=== PATIENT | female | born 2000 | race African-American/Black ===

== ENCOUNTER 2019-03-07 17:55 | Emergency (ER) | payer MEDICAID ==
[~2019-03-07] VITALS: Ht 167.6 cm; Wt 81.6 kg
[2019-03-07 18:16] VITALS: BP 123/83
[2019-03-07 20:13] LABS: Urine Bacteria FEW /hpf (None Seen); Urine Blood Negative /uL (Negative); Urine Specific Gravity 1.013 (1.001-1.035); Urine WBC 5 /hpf (0 - 5)
== END 2019-03-07 23:15 | disposition left against medical advice (07) ==
LOC: ER 17:58
DX: R10.9 Unspecified abdominal pain (principal); R11.0 Nausea; R19.7 Diarrhea, unspecified; Z53.21 Procedure and treatment not carried out due to patient leaving prior to being seen by health care provider
CPT/HCPCS: 74176; 81001; 81025

== ENCOUNTER 2019-05-27 17:21 | Emergency (ER) | payer MEDICAID ==
[~2019-05-27] VITALS: Ht 170.2 cm; Wt 86.2 kg
[2019-05-27 19:23] LABS: Basophils # (auto) 0.1 uL; Basophils % (auto) 0.7 % (0.0-2.0); Eosinophils # (auto) 0.1 uL; Eosinophils % (auto) 1.3 % (0.0-7.0); Hematocrit 38.7 % (36.0-46.0); Hemoglobin 12.8 g/dL (12.2-16.2); Lymphocytes # (auto) 2.1 uL; Lymphocytes % (auto) 23.4 % (10.0-50.0); Mean Corpuscular Hemoglobin 28.9 pg (28.0-32.0); Mean Corpuscular Hgb Conc. 33.1 g/dL (32.0-36.0); Mean Corpuscular Volume 87.3 fL (80.0-100.0); Monocytes # (auto) 0.6 uL; Monocytes % (auto) 7.3 % (0.0-12.0); Neutrophils # (auto) 5.9 uL; Neutrophils % (auto) 67.3 % (37.0-80.0); Platelet Count (auto) 247 10^3/uL (140-450); Red Blood Cells 4.43 10^6/uL (4.0-5.20); Red Cell Distribution Width 15.2 % (11.8-14.3); White Blood Cell 8.8 10^3/uL (4.4-10.8)
[2019-05-27 19:33] LABS: Urine Bacteria FEW /hpf (None Seen); Urine Blood Negative /uL (Negative); Urine Specific Gravity 1.022 (1.001-1.035); Urine WBC 2 /hpf (0 - 5)
[2019-05-27 19:44] LABS: Albumin 3.7 g/dL (3.4-5.0); BUN/Creatinine Ratio 17.1; Potassium 4.1 mmol/L (3.5-5.1)
[2019-05-27 19:46] LABS: Bilirubin, Total 0.2 mg/dL (0.2-1.0)
[2019-05-27 22:31] VITALS: BP 109/67
== END 2019-05-27 22:36 | disposition home or self-care (01) ==
LOC: ER 17:21
DX: K52.9 Noninfective gastroenteritis and colitis, unspecified (principal)
CPT/HCPCS: 36415; 80053; 81001; 81025; 85025

== ENCOUNTER 2022-02-07 08:53 | Emergency (ER) | payer MEDICAID, OTHER ==
[~2022-02-07] VITALS: Ht 165.1 cm; Wt 61.8 kg
[2022-02-07] MEDS ORDERED: PROCHLORPERAZINE EDISYLATE 5 MG/ML 2ML VIAL IV ONE (09:15)
[2022-02-07] MEDS ORDERED: SODIUM CHLORIDE 0.9% 1,000 ML IVB ONE (09:15)
[2022-02-07] MEDS ORDERED: PANTOPRAZOLE 40 MG/10 ML VIAL INJ IV ONE (09:15)
[2022-02-07 09:35] LABS: Urine Bacteria FEW /hpf (None Seen); Urine Blood Negative /uL (Negative); Urine WBC 4 /hpf (0 - 5)
[2022-02-07] MEDS ORDERED: MORPHINE SULFATE INJ 2 MG/ml SYRG IV ONE (09:45)
[2022-02-07 09:50] LABS: Basophils # (auto) 0.1 10 ^3/uL (0-0.2); Eosinophils # (auto) 0.1 10 ^3/uL (0-0.8); Eosinophils % (auto) 0.6 % (0.0-7.0); Hemoglobin 14.2 g/dL (12.2-16.2); Lymphocytes # (auto) 1.7 10 ^3/uL (0.4-5.4); Lymphocytes % (auto) 15.2 % (10.0-50.0); Mean Corpuscular Hgb Conc. 33.1 g/dL (32.0-36.0); Mean Corpuscular Volume 93.7 fL (80.0-100.0); Monocytes % (auto) 8.8 % (0.0-12.0); Neutrophils # (auto) 8.4 10 ^3/uL (1.6-8.6); Neutrophils % (auto) 74.4 % (37.0-80.0); Red Blood Cells 4.59 10^6/uL (4.0-5.20); Red Cell Distribution Width 12.9 % (11.8-14.3); White Blood Cell 11.4 10^3/uL (4.4-10.8)
[2022-02-07 10:12] LABS: Albumin 4.2 g/dL (3.4-5.0); Calcium 9.7 mg/dL (8.5-10.1); Potassium 3.9 mmol/L (3.5-5.1)
[2022-02-07 10:16] LABS: BUN/Creatinine Ratio 14.3; Bilirubin, Total 0.4 mg/dL (0.2-1.0); Total Protein 8.5 g/dL (6.4-8.2)
[2022-02-07 10:23] LABS: INR 1.01 (0.9-1.15); Partial Thromboplastin Time 28.7 sec (24.6-33.4)
[2022-02-07 11:45] VITALS: BP 128/89
[2022-02-07] MEDS ORDERED: cefTRIAXone 1GM/50ML D5W 50 ML IV ONE (11:45)
[2022-02-07] MEDS ORDERED: PANT40TA2 PO (11:48)
[2022-02-07] MEDS ORDERED: ONDA-144 PO (11:48)
[2022-02-07] MEDS ORDERED: NITR-87 PO (11:57)
== END 2022-02-07 12:53 | disposition home or self-care (01) ==
LOC: ER 08:53
DX: R11.2 Nausea with vomiting, unspecified (principal); R10.11 Right upper quadrant pain; Z79.899 Other long term (current) drug therapy
CPT/HCPCS: 36415; 74176; 80053; 81001; 81025; 82150; 83690; 85025; 85610; 85730; 96361; 96365; 96375; 99285; C9113; J0696; J0780; J2270; J7030

== ENCOUNTER 2023-12-24 10:42 | Inpatient (IN) | payer MEDICAID, OTHER ==
[~2023-12-24] VITALS: Ht 165.1 cm; Wt 63.9 kg
[~2023-12-24 10:42] MED LIST: NITR-87 PO; ONDA-144 PO; PANT40TA2 PO
[2023-12-24 11:42] LABS: Urine Bacteria None Seen /hpf (None Seen)
[2023-12-24 11:57] LABS: Urine Blood Negative /uL (Negative); Urine Clarity Clear (Clear); Urine Color Colorless (Yellow); Urine Protein, UAD Negative (Negative); Urine Specific Gravity 1.009 (1.001-1.035); Urine Urobilinogen Normal (Negative); Urine WBC <1 /hpf (0 - 5)
[2023-12-24 13:36] LABS: Basophils # (auto) 0.1 10 ^3/uL (0-0.2); Basophils % (auto) 0.7 % (0.0-2.0); Eosinophils # (auto) 0.2 10 ^3/uL (0-0.8); Eosinophils % (auto) 2.9 % (0.0-7.0); Hematocrit 37.4 % (36.0-46.0); Hemoglobin 12.9 g/dL (12.2-16.2); Lymphocytes # (auto) 2.7 10 ^3/uL (0.4-5.4); Lymphocytes % (auto) 32.3 % (10.0-50.0); Mean Corpuscular Hemoglobin 32.9 pg (28.0-32.0); Mean Corpuscular Hgb Conc. 34.4 g/dL (32.0-36.0); Mean Corpuscular Volume 95.4 fL (80.0-100.0); Monocytes # (auto) 0.8 10 ^3/uL (0-1.3); Neutrophils # (auto) 4.5 10 ^3/uL (1.6-8.6); Neutrophils % (auto) 54.1 % (37.0-80.0); Red Blood Cells 3.92 10^6/uL (4.0-5.20); Red Cell Distribution Width 12.6 % (11.8-14.3); White Blood Cell 8.3 10^3/uL (4.4-10.8)
[2023-12-24 13:41] LABS: Chloride 109 mmol/L (98-107); Potassium 3.8 mmol/L (3.5-5.1); Sodium 138 mmol/L (136-145)
[2023-12-24 13:42] LABS: Anion Gap 5 (5-15); Calcium 9.5 mg/dL (8.7-10.4); Carbon Dioxide 24 mmol/L (20-30)
[2023-12-24 13:47] LABS: BUN/Creatinine Ratio 11.8 (10.0-20.0); Blood Urea Nitrogen 8 mg/dL (9-23); Glucose 86 mg/dL (74-106)
[2023-12-24 16:51] VITALS: BP 114/60; PULSE 59; RESP 20; TEMP 98.4; O2SAT 97
[2023-12-24] MEDS: KETOROLAC TROMETH 30 MG/ML 1ML VIAL IV ONE (16:59)
[2023-12-24] MEDS: SODIUM CHLORIDE 0.9% 500 ML IV ONE (16:59)
[2023-12-24] MEDS ORDERED: ONDANSETRON HCL 4 MG/2 ML VIAL IV PRN (19:15)
[2023-12-24] MEDS ORDERED: SODIUM CHLORIDE 0.9% 1,000 ML IV SCH (19:15)
[2023-12-24] MEDS ORDERED: DOCUSATE SOD 100 MG CAP PO PRN (19:15)
[2023-12-24] MEDS ORDERED: NITROGLYCERIN 0.4 MG SL TAB SL PRN (19:15)
[2023-12-24] MEDS ORDERED: MORPHINE SULFATE INJ 2 MG/ml SYRG IV PRN ×2 (19:15)
[2023-12-24] MEDS ORDERED: DICYCLOMINE HCL 10 MG CAP PO ONE (19:15)
[2023-12-24] MEDS ORDERED: PANTOPRAZOLE 40 MG/10 ML VIAL INJ IV ONE (19:15)
[2023-12-24 20:24] LABS: Amphetamine Screen, Urine Neg (NEGATIVE); Barbiturate Scree,Urine Neg (NEGATIVE); Benzodiazephine Screen, Urine Neg (NEGATIVE); Cannabinoid Screen, Urine Pos (NEGATIVE); Cocaine Screen, Urine Neg (NEGATIVE); Opiate Scree,Urine Neg (NEGATIVE); Phencyclidine Screen, Urine Neg (NEGATIVE)
[2023-12-24] MEDS ORDERED: DICYCLOMINE HCL 10 MG CAP PO SCH (22:00)
[2023-12-25] MEDS ORDERED: PANTOPRAZOLE 40 MG/10 ML VIAL INJ IV SCH (10:00)
== END 2023-12-24 22:04 | disposition left against medical advice (07) | DRG 812 ==
LOC: ER 10:42 → OVERFLOW 19:16
PROVIDERS: ADMIT Internal Medicine Geriatric Medicine; ATTEND Internal Medicine Geriatric Medicine
DX: T40.711A Poisoning by cannabis, accidental (unintentional), initial encounter (principal); F12.90 Cannabis use, unspecified, uncomplicated; R10.31 Right lower quadrant pain; S39.012A Strain of muscle, fascia and tendon of lower back, initial encounter; Z53.29 Procedure and treatment not carried out because of patient's decision for other reasons; F19.90 Other psychoactive substance use, unspecified, uncomplicated; Y92.89 Other specified places as the place of occurrence of the external cause
CPT/HCPCS: 36415; 74176; 76856; 80048; 80307; 81001; 81025; 83605; 83690; 85025; G0378; J1885

== ENCOUNTER 2024-01-26 16:50 | Emergency (ER) | payer MEDICAID ==
[~2024-01-26] VITALS: Ht 165.1 cm; Wt 68.3 kg
[2024-01-26 17:58] LABS: Urine Bacteria None Seen /hpf (None Seen)
[2024-01-26 18:34] LABS: Basophils # (auto) 0 10 ^3/uL (0-0.2); Basophils % (auto) 0.6 % (0.0-2.0); Eosinophils # (auto) 0.3 10 ^3/uL (0-0.8); Eosinophils % (auto) 4.1 % (0.0-7.0); Hematocrit 35.3 % (36.0-46.0); Hemoglobin 11.8 g/dL (12.2-16.2); Lymphocytes # (auto) 2.7 10 ^3/uL (0.4-5.4); Lymphocytes % (auto) 39.2 % (10.0-50.0); Mean Corpuscular Hemoglobin 31.9 pg (28.0-32.0); Mean Corpuscular Hgb Conc. 33.3 g/dL (32.0-36.0); Mean Corpuscular Volume 95.8 fL (80.0-100.0); Monocytes # (auto) 0.6 10 ^3/uL (0-1.3); Monocytes % (auto) 8.2 % (0.0-12.0); Neutrophils # (auto) 3.3 10 ^3/uL (1.6-8.6); Neutrophils % (auto) 47.9 % (37.0-80.0); Nucleated Red Blood Cells % 0.1 %; Platelet Count (auto) 156 10^3/uL (140-450); Red Blood Cells 3.69 10^6/uL (4.0-5.20); Red Cell Distribution Width 12.7 % (11.8-14.3); White Blood Cell 6.9 10^3/uL (4.4-10.8)
[2024-01-26 18:41] LABS: Urine Blood Negative /uL (Negative); Urine Clarity Clear (Clear); Urine Protein, UAD Negative (Negative); Urine Specific Gravity 1.007 (1.001-1.035); Urine Urobilinogen Normal (Negative); Urine WBC <1 /hpf (0 - 5); Urine pH 6.5 (5.0-9.0)
[2024-01-26 18:48] LABS: Chloride 110 mmol/L (98-107); Potassium 3.7 mmol/L (3.5-5.1); Sodium 140 mmol/L (136-145)
[2024-01-26 18:49] LABS: Anion Gap 5 (5-15); Carbon Dioxide 25 mmol/L (20-30)
[2024-01-26 18:54] LABS: BUN/Creatinine Ratio 8.8 (10.0-20.0); Blood Urea Nitrogen 7 mg/dL (9-23); Glucose 89 mg/dL (74-106)
[2024-01-26 19:00] LABS: Urine Color Straw (Yellow)
[2024-01-26] MEDS: IOHEXOL 350 MG/ML 100ML IJ ONE (23:32)
[2024-01-26] MEDS: KETOROLAC TROMETH 30 MG/ML 1ML VIAL IV ONE (23:48)
[2024-01-26] MEDS: ONDANSETRON HCL 4 MG/2 ML VIAL IV ONE (23:49)
[2024-01-26] MEDS: SODIUM CHLORIDE 0.9% 1,000 ML IV ONE (23:49)
[2024-01-27 00:09] VITALS: BP 117/75; PULSE 59; RESP 14; TEMP 98; O2SAT 100
[2024-01-27] MEDS: HYDROcodone-ACET 10/325MG TAB PO ONE (03:00)
== END 2024-01-27 04:55 | disposition left against medical advice (07) ==
LOC: ER 16:50
DX: R10.31 Right lower quadrant pain (principal); R07.89 Other chest pain; R06.02 Shortness of breath; M79.604 Pain in right leg; M79.89 Other specified soft tissue disorders; Z79.899 Other long term (current) drug therapy
CPT/HCPCS: 36415; 71275; 72192; 80048; 81001; 81025; 85025; 85379; 96361; 96374; 96375; 99285; J1885; J2405; Q9967

== ENCOUNTER 2024-03-23 16:13 | Emergency (ER) | payer MEDICAID ==
[~2024-03-23] VITALS: Ht 165.1 cm; Wt 64.3 kg
[2024-03-23 17:44] LABS: Basophils # (auto) 0.1 10 ^3/uL (0-0.2); Basophils % (auto) 0.8 % (0.0-2.0); Eosinophils # (auto) 0.2 10 ^3/uL (0-0.8); Eosinophils % (auto) 2.7 % (0.0-7.0); Hematocrit 37.4 % (36.0-46.0); Hemoglobin 12.6 g/dL (12.2-16.2); Lymphocytes # (auto) 2.2 10 ^3/uL (0.4-5.4); Lymphocytes % (auto) 28.7 % (10.0-50.0); Mean Corpuscular Hemoglobin 31.9 pg (28.0-32.0); Mean Corpuscular Hgb Conc. 33.6 g/dL (32.0-36.0); Mean Corpuscular Volume 94.9 fL (80.0-100.0); Monocytes # (auto) 0.7 10 ^3/uL (0-1.3); Monocytes % (auto) 8.7 % (0.0-12.0); Neutrophils # (auto) 4.6 10 ^3/uL (1.6-8.6); Neutrophils % (auto) 59.1 % (37.0-80.0); Nucleated Red Blood Cells % 0.1 %; Platelet Count (auto) 162 10^3/uL (140-450); Red Blood Cells 3.94 10^6/uL (4.0-5.20); Red Cell Distribution Width 13.2 % (11.8-14.3); White Blood Cell 7.7 10^3/uL (4.4-10.8)
[2024-03-23 17:57] LABS: Alanine Aminotransferase 14 U/L (7-40); Albumin 4.7 g/dL (3.2-4.8); Alkaline Phosphatase 61 U/L (46-116); Anion Gap 6 (5-15); Aspartate Aminotransferase 14 U/L (13-40); BUN/Creatinine Ratio 11.1 (10.0-20.0); Bilirubin, Total 0.4 mg/dL (0.2-1.0); Blood Urea Nitrogen 8 mg/dL (9-23); Calcium 10.1 mg/dL (8.7-10.4); Carbon Dioxide 25 mmol/L (20-31); Chloride 107 mmol/L (98-107); Glucose 84 mg/dL (74-106); Potassium 4.1 mmol/L (3.5-5.1); Sodium 138 mmol/L (136-145); Total Protein 7.6 g/dL (5.7-8.2)
[2024-03-23 17:58] LABS: Urine Bacteria None Seen /hpf (None Seen); Urine WBC None Seen /hpf (0 - 5)
[2024-03-23 18:16] LABS: Urine Blood Negative /uL (Negative); Urine Clarity Clear (Clear); Urine Color Light-Yellow (Yellow); Urine Protein, UAD Negative (Negative); Urine Specific Gravity 1.011 (1.001-1.035); Urine Urobilinogen Normal (Negative); Urine pH 6.5 (5.0-9.0)
[2024-03-23] MEDS ORDERED: OMEP-434 PO (20:03)
[2024-03-23] MEDS ORDERED: FAMO20TA10 PO (20:03)
[2024-03-23 20:14] VITALS: BP 119/74; PULSE 70; RESP 16; TEMP 98.7; O2SAT 100
[2024-03-23] MEDS: LIDOCAINE VISCOUS 2% 15ML UD MT ONE (20:30)
[2024-03-23] MEDS: MAALOX PLUS or MAALOX 30 ML PO ONE (20:31)
[2024-03-23] MEDS: ONDANSETRON ODT 4 MG TAB PO ONE (20:31)
== END 2024-03-23 20:32 | disposition home or self-care (01) ==
LOC: ER 16:13
DX: K25.9 Gastric ulcer, unspecified as acute or chronic, without hemorrhage or perforation (principal); F12.10 Cannabis abuse, uncomplicated; Z79.899 Other long term (current) drug therapy; Z87.440 Personal history of urinary (tract) infections; Z32.02 Encounter for pregnancy test, result negative
CPT/HCPCS: 36415; 74176; 80053; 81001; 81025; 85025

== ENCOUNTER 2024-09-30 15:33 | Emergency (ER) | payer MEDICAID ==
[~2024-09-30] VITALS: Ht 167.6 cm; Wt 81.6 kg
[~2024-09-30 15:33] MED LIST changes: +FAMO20TA10 PO; +OMEP-434 PO
[2024-09-30] MEDS ORDERED: AMOX875T4 PO (19:43)
[2024-09-30] MEDS ORDERED: ACE3T PO (19:43)
[2024-09-30] MEDS ORDERED: CIPR1SUS8 OT (19:43)
--- NOTE | 2024-09-30 19:44 | ED.PDOC ---
Eye-HPI HPI Comments 24 year old female presents to ER with complaints of left sided earache pain x 2.5 weeks. Patient states she's been experiencing a left sided earache x 2.5 weeks with associated left upper toothache x 3.5 weeks. She rates her current earache/toothache pain a 8/10 with associated 8/10 left sided headache. Notes that she followed up with a dentist 1 week ago and was prescribed amoxicillin that she's been taking without relief. Patient presents to ER ambulatory on arrival, alert and oriented x4, with steady gait, in no distress. Denies fever, skin changes, ear drainage, nausea/vomiting, numbness/tingling, dizziness or any further symptoms/complaints Chief Complaint: Tooth Pain Time Seen by MD: 18:09 Primary Care Provider: [facility] Notes: Nurses Notes, Medications, Allergies Allergies: Coded Allergies: NO KNOWN ALLERGIES (Unverified , 01/14/19) Home Meds Active Scripts Amoxicillin & Pot Clavulanate (Amoxicillin/Potassium Cla) 875 Mg Tab, 1 TAB PO BID for 7 Days, #14 TAB 0 Refills Prov:TRINA MONTES 09/30/24 Acetaminophen W/ Codeine (Tylenol W/Cod #3) 1 Tab Tb, 1 TAB PO Q6HPRN, #10 TAB 0 Refills Prov:TRINA MONTES 09/30/24 Ciprofloxacin-Dexamethasone (Ciprofloxacin/Dexamethaso 0.3-0.1 %) 1 Yaima Yaima, 4 DROP OT BID for 7 Days, #1 BOTTLE 0 Refills Prov:TRINA MONTES 09/30/24 Famotidine (PEPCID TABLET) 20 Mg Tb, 1 TAB PO BID, #60 TAB 5 Refills Prov:JAY COLEMAN 03/23/24 Omeprazole Magnesium (Omeprazole) 20 Mg Tab, 20 MG PO DAILY, #30 TAB Prov:JAY COLEMAN 03/23/24 Nitrofurantoin Monohydrate Mac (Macrobid) 100 Mg Cap, 100 MG PO BID for 5 Days, #10 CAP Prov:HANY WHITE MD 02/07/22 Ondansetron (Zofran) 4 Mg Tab, 1 TAB PO Q6HR, #20 TAB Prov:HANY WHITE MD 02/07/22 Pantoprazole Sodium Sesquihydr (Protonix) 40 Mg Tab, 40 MG PO DAILY, #30 TAB Prov:HANY WHITE MD 02/07/22 Information Source: Patient Mode of Arrival: Ambulatory Past Medical History PAST MEDICAL HISTORY: Kidney Stones, UTI'S Surgical History: Denies all surgeries 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 Family History Family History: Unknown Social History Smoker: Non-Smoker Alcohol: Occasionally Drugs: Marijuana Lives In: Home Constitutional: denies: chills, diaphoresis, fatigue, fever, malaise, sweats, weakness, others EENTM: reports: others (As stated in HPI) Respiratory: denies: cough, hemoptysis, orthopnea, SOB at rest, shortness of breath, SOB with excertion, stridor, wheezing, others Cardiovascular: denies: chest pain, dizzy spells, diaphoresis, Dyspnea on exertion, edema, irregular heart beat, left arm pain, lightheadedness, palpitations, PND, syncope, others Gastrointestinal: denies: abdomen distended, abdominal pain, blood streaked bowels, constipated, diarrhea, dysphagia, difficulty swallowing, hematemesis, melena, nausea, poor appetite, poor fluid intake, rectal bleeding, rectal pain, vomiting, others Genitourinary: denies: abnormal vagina bleeding, burning, dyspareunia, dysuria, flank pain, frequency, hematuria, incontinence, pain, , vagina discharge, urgency, others Neurological: denies: dizziness, fainting, headache, left sided numbness, left sided weakness, numbness, paresthesia, pre-existing deficit, right sided numbness, right sided weakness, seizure, speech problems, tingling, tremors, weakness, others Musculoskeletal: denies: back pain, gout, joint pain, joint swelling, muscle pain, muscle stiffness, neck pain, others Integumetry: denies: bruises, change in color, change in hair/nails, dryness, laceration, lesions, lumps, rash, wounds, others Allergic/Immunocompromised: denies: Difficulty Healing, Frequent Infections, Hives, Itching, others Hematologic/Lymphatic: denies: anemia, blood clots, easy bleeding, easy bruising, swollen glands, others Endocrine: denies: excessive hunger, excessive sweating, excessive thirst, excessive urination, flushing, intolerance to cold, intolerance to heat, unexplained weight gain, unexplained weight loss, others Psychiatric: denies: anxiety, bipolar disorder, depression, hopeless, panic disorder, schizophrenia, sleepless, suicidal, others Physical Exam General Appearance: No Apparent Distress HEENT: Pharynx Normal, Other (Mild erythema/bulging noted to left TM. slight TTP also noted to left tragus. Remainder bilateral ear exam-unremarkable. Mild swelling/erythema surrounding gums of left upper wisdom tooth and left upper 2nd molar tooth appreciated without bleeding/drainage. No facial swelling/skin changes noted) Neck: Full Range of Motion, Non-Tender, Normal Respiratory: Chest Non-Tender, Lungs Clear, No Accessory Muscle Use, No Respiratory Distress, Normal Breath Sounds Cardiovascular: No Murmur, No Gallop, Regular Rate/Rhythm Breast Exam: Deferred Gastrointestinal: NOT DONE Genitalia: Deferred Pelvic: Deferred Rectal: Deferred Extremities: Normal capillary refill, Normal range of motion Neurologic: Alert, makeup editor II-XII nml as Tested, No Motor Deficits, Normal Affect, Normal Mood, No Sensory Deficits Cerebellar Function: Normal Reflexes: Normal Skin: Dry, Normal Color, Warm Lymphatic: No Adenopathy Was a procedure done? Was a procedure done?: No Sedation Sedation?: No EENT DIFF Eye: N/A Ear: Cerumen Impaction, Otitis Externa, Barotrauma, Perforation Mouth: Other (dental abscess) X-Ray, Labs, Meds, VS Vital Signs Date Time Temp Pulse Resp B/P (MAP) Pulse Ox O2 Delivery O2 Flow Rate FiO2 09/30/ 16:24 97.8 58 20 150/55 (86) 98 97.8 Pheba 5/325 mg p.o. ordered Zofran 4 mg p.o. ordered Rocephin 1 g IM ordered Patient had improvement in symptoms and in no distress prior to discharge Advised to discontinue amoxicillin and to take the following antibiotics below as prescribed Advised to f/u with ENT in 4 days if symptoms do not improve Advised to follow up with PCP and dentist in 1-2 days Patient verbalized understanding and agreeable with current plan of care Advised to return to ER immediately if symptoms worsen Time of 1ST Reevaluation: 19:12 Reevaluation 1ST: N/A Patient Education/Counseling: Diagnosis, Treatment, Prognosis, Need For Follow Up Family Education/Counseling: No Family Present Departure 1 Departure Time of Disposition: 19:32 Impression: Primary Impression: Otitis media of left ear Qualified Codes: H66.92 - Otitis media, unspecified, left ear Additional Impression: Dental infection Disposition: HOME / SELF CARE / HOMELESS Condition: Stable e-Prescriptions Amoxicillin & Pot Clavulanate (Amoxicillin/Potassium Cla) 875 Mg Tab 1 TAB PO BID for 7 Days, #14 TAB 0 Refills Prov: TRINA MONTES 09/30/24 Acetaminophen W/ Codeine (Tylenol W/Cod #3) 1 Tab Tb 1 TAB PO Q6HPRN, #10 TAB 0 Refills Prov: TRINA MONTES 09/30/24 Ciprofloxacin-Dexamethasone (Ciprofloxacin/Dexamethaso 0.3-0.1 %) 1 Yaima Yaima 4 DROP OT BID for 7 Days, #1 BOTTLE 0 Refills Prov: TRINA MONTES 09/30/24 Discharged With: Friend Critical Care Note Critical Care Time?: No Stability Stability form required: No Heart Score Heart Score: Heart Score Response (Comments) Value History N/A 0 EKG N/A 0 Age N/A 0 Risk Factors N/A 0 Troponin N/A 0 Total 0 TRINA MONTES Sep 30, 2024 19:44
[2024-09-30] MEDS: HYDROcodone-ACET 5/325MG TAB PO ONE (19:52)
[2024-09-30] MEDS: ONDANSETRON ODT 4 MG TAB PO ONE (19:52)
[2024-09-30] MEDS: cefTRIAXone SOD 1,000 MG VL IM ONE (19:52)
[2024-09-30 19:59] VITALS: BP 127/81; PULSE 67; RESP 17; TEMP 98.5; O2SAT 100
== END 2024-09-30 20:11 | disposition home or self-care (01) ==
LOC: ER 15:36
DX: H66.92 Otitis media, unspecified, left ear (principal); K04.7 Periapical abscess without sinus; Z79.899 Other long term (current) drug therapy; Z87.440 Personal history of urinary (tract) infections
CPT/HCPCS: 96372; 99283; J0696; Q0162

== ENCOUNTER 2025-05-16 10:30 | Emergency (ER) | payer MEDICAID, SELFPAY ==
[~2025-05-16] VITALS: Ht 167.6 cm; Wt 89.5 kg
[~2025-05-16 10:30] MED LIST changes: +ACE3T PO; +AMOX875T4 PO; +CIPR1SUS8 OT
[2025-05-16 10:32] VITALS: TEMP 98.3
--- NOTE | 2025-05-16 11:30 | ED.PDOC ---
Musculoskeletal HPI Comments The patient presented with severe pain in the left pelvic region radiating down to the ankle. The patient reported severe, continuous pain in the left pelvic area that began after walking out of the back door on Friday night. The pain has been persistent and intense, with a current severity of 10 out of 10. The patient noted swelling yesterday and has been using Tylenol and ibuprofen for pain relief, though ibuprofen use is limited due to stomach ulcers. The left side has been used for support due to a bad right knee with a torn meniscus. The patient expressed concerns about a possible dislocation or kidney stone. Pain radiates to the ankle, with the knee and pelvis being most affected, and the calf feeling painful in the morning. No blood in urine or burning with urination was reported. Pertinent negatives include no report of blood in urine or burning during urination. The patient has a history of ovarian cysts and is currently seeing a new OB-PERSONAL PROPERTY APPRAISER. The patient has an enlarged ovary and cysts on both ovaries and was previously on control, which was stopped around December or January due to insurance issues. The patient is in the process of obtaining a pelvic MRI. Chief Complaint: Lower Extremity Time Seen by MD: 11:20 Primary Care Provider: [facility] Reviewed Notes: Nurses Notes, Medications, Allergies Allergies: Coded Allergies: NO KNOWN ALLERGIES (Unverified , 01/14/19) Home Meds Active Scripts Amoxicillin & Pot Clavulanate (Amoxicillin/Potassium Cla) 875 Mg Tab, 1 TAB PO BID for 7 Days, #14 TAB 0 Refills Prov:TRINA MONTES 09/30/24 Acetaminophen W/ Codeine (Tylenol W/Cod #3) 1 Tab Tb, 1 TAB PO Q6HPRN, #10 TAB 0 Refills Prov:TRINA MONTES 09/30/24 Ciprofloxacin-Dexamethasone (Ciprofloxacin/Dexamethaso 0.3-0.1 %) 1 Yaima Yaima, 4 DROP OT BID for 7 Days, #1 BOTTLE 0 Refills Prov:TRINA MONTES 09/30/24 Famotidine (PEPCID TABLET) 20 Mg Tb, 1 TAB PO BID, #60 TAB 5 Refills Prov:JAY LARSONP 03/23/24 Omeprazole Magnesium (Omeprazole) 20 Mg Tab, 20 MG PO DAILY, #30 TAB Prov:JAY LARSONP 03/23/24 Nitrofurantoin Monohydrate Mac (Macrobid) 100 Mg Cap, 100 MG PO BID for 5 Days, #10 CAP Prov:HANY WHITE MD 02/07/22 Ondansetron (Zofran) 4 Mg Tab, 1 TAB PO Q6HR, #20 TAB Prov:HANY WHITE MD 02/07/22 Pantoprazole Sodium Sesquihydr (Protonix) 40 Mg Tab, 40 MG PO DAILY, #30 TAB Prov:HANY WHITE MD 02/07/22 Information Source: Patient Mode of Arrival: Ambulatory Location: Left Extremity Location: Hip Timing: Days Prehospital treatment: None Severity: Moderate Able to Move Extremity: Yes Bear Weight: Limited Pain: Moderate Hand Dominance: Right Mechanism: Spontaneous Circumstances: Spontaneous, Accident, Tripped Onset of Symptoms: After Trauma Symptoms: Pain DVT Risk Factors: NONE Associated signs and symptoms: Hip pain Past Medical History PAST MEDICAL HISTORY: Kidney Stones, UTI'S Surgical History: Denies all surgeries 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 Family History Family History: Unknown Social History Smoker: Non-Smoker Alcohol: Occasionally Drugs: Marijuana Lives In: Home Constitutional: denies: chills, diaphoresis, fatigue, fever, malaise, sweats, weakness, others EENTM: denies: blurred vision, double vision, ear bleeding, ear discharge, ear drainage, ear pain, ear ringing, eye pain, eye redness, hearing loss, mouth pain, mouth swelling, nasal discharge, nose bleeding, nose congestion, nose p ain, photophobia, tearing, throat pain, throat swelling, voice changes, others Respiratory: denies: cough, hemoptysis, orthopnea, SOB at rest, shortness of breath, SOB with excertion, stridor, wheezing, others Cardiovascular: denies: chest pain, dizzy spells, diaphoresis, Dyspnea on exertion, edema, irregular heart beat, left arm pain, lightheadedness, palpitations, PND, syncope, others Gastrointestinal: denies: abdomen distended, abdominal pain, blood streaked bowels, constipated, diarrhea, dysphagia, difficulty swallowing, hematemesis, melena, nausea, poor appetite, poor fluid intake, rectal bleeding, rectal pain, vomiting, others Genitourinary: denies: abnormal vagina bleeding, burning, dyspareunia, dysuria, flank pain, frequency, hematuria, incontinence, pain, , vagina discharge, urgency, others Neurological: denies: dizziness, fainting, headache, left sided numbness, left sided weakness, numbness, paresthesia, pre-existing deficit, right sided numbness, right sided weakness, seizure, speech problems, tingling, tremors, weakness, others Musculoskeletal: reports: others (Left hip pain); denies: back pain, gout, joint pain, joint swelling, muscle pain, muscle stiffness, neck pain Integumetry: denies: bruises, change in color, change in hair/nails, dryness, laceration, lesions, lumps, rash, wounds, others Allergic/Immunocompromised: denies: Difficulty Healing, Frequent Infections, Hives, Itching, others Hematologic/Lymphatic: denies: anemia, blood clots, easy bleeding, easy bruising, swollen glands, others Endocrine: denies: excessive hunger, excessive sweating, excessive thirst, excessive urination, flushing, intolerance to cold, intolerance to heat, unexplained weight gain, unexplained weight loss, others Psychiatric: denies: anxiety, bipolar disorder, depression, hopeless, panic disorder, schizophrenia, sleepless, suicidal, others All Other Systems: Reviewed and Negative Physical Exam Exam Comments Localized TTP to the left upper and lower abdominal quadrant no visible pulsations no guarding no rigidity General Appearance: No Apparent Distress, Normal HEENT: Normal ENT Inspection, Pharynx Normal, TMs Normal Neck: Full Range of Motion, Non-Tender, Normal, Normal Inspection Respiratory: Chest Non-Tender, Lungs Clear, No Accessory Muscle Use, No Respiratory Distress, Normal Breath Sounds Cardiovascular: No Edema, No JVD, No Murmur, No Gallop, Normal Peripheral Pulses, Regular Rate/Rhythm Breast Exam: Deferred Gastrointestinal: No Organomegaly, Non Tender, No Pulsatile Mass, Normal Bowel Sounds, Soft Genitalia: Deferred Pelvic: Deferred Rectal: Deferred Extremities: No calf tenderness, Normal capillary refill, Normal inspection, Normal range of motion, Non-tender, No pedal edema Musculoskeletal : Apperance: Normal Neurologic: Alert, contracting engineer II-XII nml as Tested, No Motor Deficits, Normal Affect, Normal Mood, No Sensory Deficits Cerebellar Function: Normal Reflexes: Normal Skin: Dry, Normal Color, Warm Lymphatic: No Adenopathy Was a procedure done? Was a procedure done?: No Differential Diagnosis EXT Differential Diagnosis: Other X-Ray, Labs, Meds, VS Vital Signs Date Time Temp Pulse Resp B/P (MAP) Pulse Ox O2 Delivery O2 Flow Rate FiO2 05/16/25 14:23 97 18 116/58 (77) 96 05/16/25 10:32 98.3 63 16 125/58 95 98.3 Lab Test 05/16/25 11:46 05/16/25 11:45 Range/Units Urine Color Light-yellow Yellow Urine Clarity Clear Clear Urine pH 6.5 5.0-9.0 Urine Specific Allison 1.011 1.001-1.035 Urine Protein Negative Negative Urine Ketones Negative Negative Urine Blood Negative Negative /uL Urine Nitrite Negative Negative Urine Bilirubin Negative Negative Urine Urobilinogen Normal Negative mg/dL Urine Leukocyte Esterase Trace Negative /uL Urine RBC 4 0 - 4 /hpf Urine Microscopic WBC < 1 0-5 /HPF Urine Squamous Epithelial Cells Few <5 /hpf Urine Bacteria None seen None Seen /hpf Urine Glucose Normal Normal mg/dL Urine Test Negative Negative X-Ray, Labs, Meds, VS Comment Patient arrives alert and oriented, ABC's intact, afebrile, vital signs stable, saturating well in room air The patient experienced severe continuous pain in the left pelvic area radiating to the ankle, with a history of swelling and limited response to pain relief medications. The differential includes possible musculoskeletal pain or nerve impingement. The patient has a history of ovarian cysts with an enlarged ovary and is awaiting further evaluation with an MRI. Tylenol for pain management was continued. The patient was advised to limit ibuprofen due to stomach ulcers. - The patient was advised to continue monitoring the pain and swelling and to use supportive measures for the knee. - The patient was instructed to follow up with her OB-PERSONAL PROPERTY APPRAISER in June for further evaluation of her ovarian cysts. - The patient was referred for an MRI and advised on pain management strategies until her OB-PERSONAL PROPERTY APPRAISER appointment. Additional MDM Review of External, Non-ED records: External records reviewed. Discussion with independent historian (EMS, family) history obtained from the patient/parents (if applicable) at bedside Chronic conditions affecting care: None Social determinants of health affecting care: None Consideration of admission (observation or admission): I considered escalation of care to admission for this patient, however given the reassuring workup, the patient is safe for outpatient management. Time of 1ST Reevaluation: 11:50 Reevaluation 1ST: Unchanged Patient Education/Counseling: Diagnosis, Treatment, Prognosis Family Education/Counseling: No Family Present Departure 1 Departure Time of Disposition: 14:14 Impression: Primary Impression: Left hip pain Disposition: 01 HOME / SELF CARE / HOMELESS Condition: Stable Critical Care Note Critical Care Time?: No Stability Stability form required: No Heart Score Heart Score: Heart Score Response (Comments) Value History N/A 0 EKG N/A 0 Age N/A 0 Risk Factors N/A 0 Troponin N/A 0 Total 0 I personally scribed for VERENA ESPINOZA NP ([email or web address]) on 05/16/25 at 11:30. Electronically submitted by Rodney Braswell ([email or web address]). VERENA ESPINOZA NP May 16, 2025 11:30
[2025-05-16 12:14] LABS: Urine Protein, UAD Negative (Negative)
--- NOTE | 2025-05-16 14:06 | DVH ---
Left HIP RADIOGRAPH. CLINICAL INDICATION: R/o dislocation TECHNIQUE: 4 views of the left hip were obtained. FINDINGS: There is no evidence of fracture, subluxation or dislocation.The alignment is within normal limits.The bony mineralization is normal.No radiopaque foreign body is identified. IMPRESSION: 1. No evidence of acute bony injury.
[2025-05-16 14:23] VITALS: BP 116/58; PULSE 97; RESP 18; O2SAT 96
== END 2025-05-16 14:34 | disposition home or self-care (01) ==
LOC: ER 10:30
DX: M25.552 Pain in left hip (principal); F12.90 Cannabis use, unspecified, uncomplicated; F10.90 Alcohol use, unspecified, uncomplicated; Z79.899 Other long term (current) drug therapy; Z87.442 Personal history of urinary calculi; Z87.440 Personal history of urinary (tract) infections
CPT/HCPCS: 73502; 81001; 81025